=== PATIENT | female | born 1950 | race Caucasian/White ===

== ENCOUNTER 2017-03-20 20:55 | Emergency (ER) | payer OTHER, MEDICARE ==
[2017-03-20 21:14] VITALS: BP 125/68; PULSE 69; RESP 14; TEMP 97.7; O2SAT 93
[2017-03-20] MEDS ORDERED: NITROFURANTOIN 100MG PREPACK#2 BTL TAKEHOME ONE (21:29)
[2017-03-20] MEDS ORDERED: PHENAZOPYRIDINE HCL 200 MG TAB PO ONE (21:29)
--- NOTE | 2017-03-20 21:32 | EDPHY ---
H & P Time Seen by Provider: 03/20/17 21:03 HPI/ROS: This patient reports a 1 day history of dysuria, frequency or urgency similar previous cystitis. She has associated feeling of slight bladder cramping and reports dark urine today in addition. She denies any other associated symptoms. She reports that she came in early this time with her symptoms hoping to be treated for UTI prior to progression of symptoms she has had more significant UTIs in the past. She drove herself here by private vehicle. She notes no exacerbating or alleviating factors for her symptoms. ROS: No fevers chills or other constitutional symptoms : No back pain. No gross hematuria. No vaginal discharge. GI: No nausea or vomiting 5 point ROS is otherwise negative. Past Medical/Surgical History: Prior UTIs. Dyslipidemia. Otherwise healthy Smoking Status: Former smoker Physical Exam: Physical Exam Vital signs are normal. General: No acute distress Eyes: Pupils equal and react to light. Extraocular motions are intact. Lungs: No respiratory distress. Cardiac: Brisk capillary refill is intact throughout. Back: No CVA tenderness Abdomen: Mild suprapubic tenderness with no guarding or rebound. Skin: No rash or pallor. Neuro: Alert. Initial differential diagnosis: Cystitis, interstitial cystitis, urethral irritation Constitutional: Initial Vital Signs Temperature (C) 36.5 C 03/20/17 21:12 Heart Rate 69 03/20/17 21:12 Respiratory Rate 14 03/20/17 21:12 Blood Pressure 125/68 H 03/20/17 21:12 O2 Sat (%) 93 03/20/17 21:12 O2 Delivery Mode Room Air Allergies/Adverse Reactions: codeine Allergy (Verified 05/19/14 13:54) erythromycin base [Erythromycin Base] Allergy (Verified 05/19/14 13:54) Home Medications: Medication Instructions Recorded Aspirin [Aspirin 81mg (OTC)] 81 mg PO DAILY 09/15/12 Melatonin [Melatonin 3 MG (OTC)] 3 mg PO HS 09/15/12 Fish Oil 01/11/14 Calcium [HI-OLIVIA] 02/06/14 Lipitor 40 mg (RX) 02/06/14 Multivitamins [Multivitamin (OTC)] 02/06/14 Nitrofurantoin Macrobid [Macrobid] 100 mg PO BID 5 Days cap 05/19/14 Nitrofurantoin Macrobid [Macrobid 100 mg PO BID #6 cap 03/20/17 100 mg (RX)] Phenazopyridine HCl [Pyridium 200 mg PO TID PRN #6 tab 03/20/17 200mg (RX)] MDM/Departure - MDM Diagnostics: Urinalysis reveals hematuria and bacteria but no he pyuria at this point. ED Course/Re-evaluation: Given classic symptoms, bacteria hematuria I suspect that the microscopic hematuria is attributable to early cystitis. I counseled the patient regarding this. Will go ahead and treat her with Macrobid and Pyridium. She understands the need to return should she developed onset of worsening symptoms despite the treatment plan or develops sharp flank pain or other additional symptoms. - Depart Disposition: Home, Routine, Self-Care Clinical Impression: UTI symptoms, Microscopic hematuria Condition: Good Instructions: Hematuria (ED) Additional Instructions: Diagnosis: 1. UTI symptoms 2. Microscopic hematuria You have a small amount of blood and bacteria urine. No white blood cells yet. I suspect the have an early bladder infection. Plan: Drink plenty fluids Macrobid antibiotic Peridium for burning discomfort as needed Return for any significant worsening of your symptoms despite the treatment plan. Prescriptions: Nitrofurantoin Macrobid [Macrobid 100 mg (RX)] 100 mg PO BID #6 cap Phenazopyridine HCl [Pyridium 200mg (RX)] 200 mg PO TID PRN #6 tab PRN Reason: dysuria Referrals: Juanita Garcia MD [Primary Care Provider] - As per Instructions
== END 2017-03-20 21:49 | disposition home or self-care (01) ==
LOC: CED 20:55
DX: N39.0 Urinary tract infection, site not specified (principal); B96.89 Other specified bacterial agents as the cause of diseases classified elsewhere; Z79.82 Long term (current) use of aspirin; Z87.891 Personal history of nicotine dependence
CPT/HCPCS: 81003-PO; 81015-PO

== ENCOUNTER 2017-11-12 10:31 | Day surgery (SDC) | payer OTHER, MEDICARE ==
[2017-11-12] MEDS ORDERED: LR 1,000 ML IV ONE (11:04)
--- NOTE | 2017-11-12 12:01 | PDANEPAE ---
ANE History of Present Illness egd, colon ANE Past Medical History - Cardiovascular History Hx Hypertension: No Hx Arrhythmias: No Hx Chest Pain: No Hx Coronary Artery / Peripheral Vascular Disease: No Hx CHF / Valvular Disease: No Hx Palpitations: No - Pulmonary History Hx COPD: No Hx Asthma/Reactive Airway Disease: No Hx Recent Upper Respiratory Infection: No Hx Oxygen in Use at Home: No Hx Sleep Apnea: No Sleep Apnea Screening Result - Last Documented: Negative - Neurologic History Hx Cerebrovascular Accident: No Hx Seizures: No Hx Dementia: No - Endocrine History Hx Diabetes: No Hypothyroid: No Hyperthyroid: No - Renal History Hx Renal Disorders: Yes Renal History Comment: REMOTE UTI'S - Liver History Hx Hepatic Disorders: No - Neurological & Psychiatric Hx Hx Neurological and Psychiatric Disorders: No - Cancer History Hx Cancer: No - Congenital Disorder History Hx Congenital Disorders: No - GI History Hx Gastrointestinal Disorders: Yes Gastrointestinal History Comment: HX OF COLON POLYPS. HEARTBURN. RUQ PAIN - Other Health History Other Health History: ECZEMA EARS,BACK OF NECK - Chronic Pain History Chronic Pain: Yes (RUQ) - Surgical History Prior Surgeries: APPENDECTOMY. COLONOSCOPY. RT KNEE SCOPE. LT CARPAL TUNNEL ANE Review of Systems Review of Systems: - Exercise capacity Exercise capacity: >=4 METS METS (RN): 4 METS ANE Patient History - Allergies Allergies/Adverse Reactions: codeine Allergy (Verified 10/17/17 15:17) HEADACHE,NAUSEA erythromycin base [Erythromycin Base] Allergy (Verified 10/17/17 15:17) CHEST DISCOMFORT - Home Medications Home medications: home medication list seen and reviewed Home Medications: Aspirin [Aspirin 81mg (OTC)] 81 mg PO DAILY 09/15/12 [Last Taken Unknown] Calcium [HI-OLIVIA] DAILY 02/06/14 [Last Taken Unknown] Lipitor 40 mg (RX) HS 02/06/14 [Last Taken Unknown] Gaviscon Liquid PRN 10/17/17 [Last Taken Unknown] Sleep-Aid HS 10/17/17 [Last Taken Unknown] Zantac DAILY 10/17/17 [Last Taken Unknown] - NPO status NPO Status: no food or drink >8 hours NPO Since - Liquids (Date): 11/12/17 NPO Since - Liquids (Time): 04:00 NPO Since - Solids (Date): 11/11/17 NPO Since - Solids (Time): 08:00 - Anes Hx Anes Hx: no prior problems - Smoking Hx Smoking Status: Former smoker ANE Labs/Vital Signs - Vital Signs Blood Pressure: 138/65 Heart Rate: 55 Respiratory Rate: 18 O2 Sat (%): 95 Height: 160.02 cm Weight: 62.596 kg ANE Physical Exam - Airway Mallampati Score: Class 2 Mouth exam: normal dental/mouth exam - Pulmonary Pulmonary: no respiratory distress - Cardiovascular Cardiovascular: regular rate and rhythym - ASA Status ASA Status: II ANE Anesthesia Plan Anesthesia Plan: GA with mask, MAC
[2017-11-12] MEDS ORDERED: MIDAZOLAM 2 MG/2 ML VIAL ONE (12:02)
[2017-11-12] MEDS ORDERED: LIDOCAINE 2% 2 ML INJ ONE (12:02)
[2017-11-12] MEDS ORDERED: PROPOFOL/EMULSION 500 MG/50 ML BOTTLE IV ONE (12:02)
--- NOTE | 2017-11-12 12:16 | PDGENHP ---
History & Physical Chief Complaint: RUQ pain. Surveillance colonoscopy History of Present Illness: Personal history of colon polyps. Last colonoscopy incomplete due to pain during procedure. RUQ pain. Pertinent Past, Social, Family History: FH: grandmother with CRC. SH: No tobacco or ETOH. PMH: Hyperlipidemia. OA. Endometriosis. Personal history of colon polyps Relevant Physical Exam: NAD. NC/AT. OP clear. Neck supple. CTA B/L. RRR without m/r/g. Abd soft. NABS. No R/G. NTTP. Cardiorespiratory Assessment: ASA II. EGD. Colonoscopy. MAC
--- NOTE | 2017-11-12 12:27 | GIREPORT ---
[facility] Surgical Services - Endoscopy Department Patient Name: Vicki Lloyd Procedure Date: 11/12/2017 11:48 AM Patient Type: Outpatient Attending MD/ ER Physician: Sorin Webber MD Procedure: Upper GI endoscopy Indications: Abdominal pain in the right upper quadrant Providers: Sorin Webber MD Medicines: Propofol per Anesthesia Complications: No immediate complications. Description of Procedure: After obtaining informed consent, the endoscope was passed under direct vision. Throughout the procedure, the patient's blood pressure, pulse, and oxygen saturations were monitored continuously. The Endoscope was intro duced through the mouth, and advanced to the second part of duodenum. [facility] er GI endoscopy was accomplished without difficulty. The patient tolerated th e procedure well. Findings: The esophagus was normal. Diffuse mild inflammation characterized by erythema and friability was found in the entire examined stomach. Biopsies were taken with a cold forceps for histology. The duodenal bulb, first portion of the duodenum and second portion of the duodenum were normal. Biopsies were taken with a cold forceps for histo logy. Estimated Blood Loss: Estimated blood loss: none. Post Op Diagnosis: - Normal esophagus. - Chronic gastritis. Biopsied. - Normal duodenal bulb, first portion of the duodenum and second portio n of the duodenum. Biopsied. Recommendation: - Await pathology results. - Treat H.pylori if present on histology. - Use a proton pump inhibitor PO daily. - Trial of a Gluten free diet. - Return to GI office as previously scheduled. - Thank you for allowing me to be involved in the care of your patient. Attending Participation: I personally performed the entire procedure without the assistance of a fellow, resident or surg ical administrative assistant. Sorin Webber MD Sorin Webber MD 11/12/2017 12:26:32 PM This report has been signed electronicallyDavid MD Akbar Number of Addenda: 0 Note Initiated On: 11/12/2017 11:48 AM [email or web address]}
[2017-11-12] MEDS ORDERED: GLYCOPYRROLATE 0.2 MG/1 ML VIAL ONE (12:31)
--- NOTE | 2017-11-12 12:44 | GIREPORT ---
[facility] Surgical Services - Endoscopy Department Patient Name: Vicki Lloyd Procedure Date: 11/12/2017 11:48 AM Patient Type: Outpatient Attending MD/ ER Physician: Sorin Webber MD Procedure: Colonoscopy Indications: High risk colon cancer surveillance: Personal history of colonic polyps Providers: Sorin Webber MD Medicines: Propofol per Anesthesia Complications: No immediate complications. Description of Procedure: After obtaining informed consent, the scope was passed under direct vis ion. Throughout the procedure, the patient's blood pressure, pulse, and oxyg en saturations were monitored continuously. The Colonoscope was introduced through the anus and advanced to the cecum, identified by appendiceal orifice and ileocecal valve. The patient tolerated the procedure well. The quality of the bowel preparation was excellent. The colonoscopy was performed without difficulty. The patient tolerated the procedure well. The ileocecal valve, appendiceal orifice, and rectum were photographed. Findings: The perianal and digital rectal examinations were normal. Pertinent negatives include normal sphincter tone and no palpable rectal lesions. The sigmoid colon was moderately tortuous. The exam was otherwise without abnormality. Estimated Blood Loss: Estimated blood loss: none. Post Op Diagnosis: - Tortuous colon. - The examination was otherwise normal. - No specimens collected. Recommendation: - Repeat colonoscopy in 5 years for surveillance. - Resume previous diet. - Continue present medications. - Patient has a contact number available for emergencies. The signs and symptoms of potential delayed complications were discussed with the pat ient. Return to normal activities tomorrow. Written discharge instructions we re provided to the patient. - Thank you for allowing me to be involved in the care of your patient. Attending Participation: I personally performed the entire procedure without the assistance of a fellow, resident or surg ical assistant elementary teacher. Sorin Webber MD Sorin Webber MD 11/12/2017 12:44:40 PM This report has been signed electronicallyDavid MD Akbar Number of Addenda: 0 Note Initiated On: 11/12/2017 11:48 AM Total Procedure Duration Time 0 hours 14 minutes 0 seconds [email or web address]
[2017-11-12] MEDS ORDERED: ONDANSETRON 4 MG/2 ML VIAL IVP PRN (12:48)
[2017-11-12] MEDS ORDERED: fentaNYL 100 MCG/2 ML INJ IVP PRN (12:48)
[2017-11-12] MEDS ORDERED: NALOXONE HCL 0.4 MG/ML INJ IVP PRN (12:48)
[2017-11-12] MEDS ORDERED: NS 500 ML IV PRN (12:48)
[2017-11-12] MEDS ORDERED: ALBUTEROL 3 ML DEYVIAL IH PRN (12:48)
--- NOTE | 2017-11-12 12:48 | POSTANESTH ---
Post Anesthetic Evaluation Cardiovascular Status: Normal, Stable Respiratory Status: Normal, Stable Level of Consciousness/Mental Status: Can Participate in Eval Pain Control: Adequate, Prn Tx Ordered Nausea/Vomiting Control: Adequate, Prn Tx Ordered Complications Possibly Related to Anesthesia: None Noted
[2017-11-12 13:47] VITALS: BP 114/80
== END 2017-11-12 13:54 | disposition home or self-care (01) ==
LOC: FSGY 10:31
PROVIDERS: ATTEND Internal Medicine Gastroenterology
DX: Z12.11 Encounter for screening for malignant neoplasm of colon (principal); K29.50 Unspecified chronic gastritis without bleeding; Z86.010 Personal history of colon polyps; Z80.0 Family history of malignant neoplasm of digestive organs; R93.3 Abnormal findings on diagnostic imaging of other parts of digestive tract; E78.5 Hyperlipidemia, unspecified
CPT/HCPCS: J2250; J2704